=== PATIENT | female | born 1985 | race Two or more races ===

== ENCOUNTER 2024-11-05 16:52 | Emergency (ER) | payer OTHER ==
[~2024-11-05] VITALS: Ht 167.6 cm; Wt 78.9 kg
[2024-11-05] MEDS ORDERED: 0.9 % SODIUM CHLORIDE 500 ML IV STA (18:56)
[2024-11-05] MEDS ORDERED: BUDESONIDE 0.5 MG/2 ML AMPUL.NEB IH STA (18:57)
[2024-11-05] MEDS ORDERED: METHYLPREDNISOLONE SOD SUCC 40 MG VIAL IV STA (18:57)
[2024-11-05] MEDS ORDERED: GUAIFENESIN 200 MG/10 ML BLIST.PACK PO STA (18:57)
[2024-11-05] MEDS ORDERED: ALBUTEROL SULFATE 3 ML/2.5 MG AMPUL.NEB IH SCH (19:00)
[2024-11-05] MEDS ORDERED: HYDROCODONE/CHLORPHEN P-STIREX 5 ML ML PO STA (21:12)
[2024-11-05] MEDS ORDERED: METHYLPREDNISOLONE SOD SUCC 125 MG VIAL IV STA (21:12)
[2024-11-05] MEDS ORDERED: IPRATROPIUM/ALBUTEROL SULFATE 3 ML AMPUL.NEB IH STA (21:19)
== END 2024-11-05 21:50 | disposition home or self-care (01) ==
LOC: ER 16:55
DX: J32.9 Chronic sinusitis, unspecified (principal); Z88.0 Allergy status to penicillin; J45.991 Cough variant asthma